=== PATIENT | female | born 1995 | race Caucasian/White ===

== ENCOUNTER 2020-02-09 10:42 | Emergency (ER) | payer MEDICAID, SELFPAY ==
[~2020-02-09] VITALS: Ht 157.5 cm; Wt 92.1 kg
[2020-02-09 11:00] VITALS: BP 110/82
[2020-02-09 11:35] VITALS: BP 110/82
== END 2020-02-09 11:36 | disposition home or self-care (01) ==
LOC: MED 10:42
DX: O26.892 Other specified pregnancy related conditions, second trimester (principal); R43.8 Other disturbances of smell and taste; R09.81 Nasal congestion; Z20.828 Contact with and (suspected) exposure to other viral communicable diseases
CPT/HCPCS: 99283; U0003